=== PATIENT | female | born 1940 | race Caucasian/White ===

== ENCOUNTER → 2023-09-29 12:33 | Outpatient (REF) | payer OTHER, SELFPAY | LOC: MRI 3T 12:33 | PROVIDERS: ATTENDING PHYSICIAN Otolaryngology; FAMILY PHYSICIAN Family Medicine | DX: S12.001A Unspecified nondisplaced fracture of first cervical vertebra, initial encounter for closed fracture (principal) | CPT/HCPCS: 72156; A9575 ==